=== PATIENT | male | born 2000 ===

== ENCOUNTER 2024-11-05 14:47 | Outpatient (AMB) | payer BC, SELFPAY ==
--- NOTE | 2024-11-05 14:50 | A.OFFPC_ITS ---
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 raphael/dr Elliott Allergies Seasonal Allergies Allergy (Mild, Verified 11/05/24 14:57) Itching Medication List - Last Reconciled 11/05/24 by Bahman Bajwa MD No Known Home Meds Tobacco use date assessed: 11/05/24 Dental Screening Dental Screen Date: 11/05/24 Did you have a dental visit in the last 12 months?: Yes Did you have a dental problem in the last 6 months where you did not have access to dental care?: No Was dental information given to patient?: Patient has dentist HPI TENDER 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 - Experienced significant weight gain du e to decreased physical activity. - Initiated gym attendance this week to manage weight. - Reports headaches potentially from sun exposure - No current eye conditions; wears glass es as needed. - Last labs conducted 2-3 years ago. - Family history includes heart disease, hypertension, and diabetes. - Daily cannabis smoker, considering str ain change to curtail appetite. Health Maintenance - Discussion on immunization status incl uding tetanus, measles, mumps, and rubella. - Recommended fasting labs for further e valuation of health metrics and risk factors. - Encouraged physical activity to manage weight and counteract the effects of cannabis-induced increased appetite. 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 - Education level is a high school diplo ma. - Smokes cannabis daily, considering adj usting the strain due to its appetite- stimulating properties. - Reports recent reduction in physical a ctivity leading to weight gain; has resumed gym activity recently. Family History - Positive for heart disease. - Positive for hypertension. - Positive for diabetes. Problem List - Headaches - Obesity - History of smoking cannabis - Family history of heart disease - Family history of hypertension - Family history of diabetes Patient Instructions - Undergo fasting laboratory tests with no food intake from 4 to 10 hours prior. - Setup a patient portal online to acces s lab results. - Increase physical activity and continu e attending the gym for weight management. - Consider discussing cannabis strain op tions at the clinic for appetite management. Review of Systems - General: No fever no chills - Neurological: No headaches no dizzin ess - Ear nose throat: No sore throat no hearing difficulty no ear pain - Cardiovascular: No syncope, no chest pain, no palpitations - Gastrointestinal: No nausea vomiting or diarrhea - Endocrine: No polyuria polydipsia no heat intolerance - Genitourinary: No dysuria - Skin: No new complaints Physical Exam General: Cooperative, healthy appearing, comfortable, no acute distress Orientation: Patient oriented x3 Limitations: None Head: Normal to inspection Ears: Within normal limit visually Nose: Normal external nose present Face and sinus: Normal facial exam Eyes: Appearance normal, extraocular movement intact pupils reactive Neck: Normal visual inspection and supple Respiratory: Normal respiratory effort and able to speak in complete sentences. Clear to auscultation, no stridor Cardiovascular: S1 and S2 regular in rate and rhythm GI: Normal to inspection. Soft to palpation and nontender Skin: Turgor normal, no acute findings Neuro: Patient oriented x3, motor sensory intact, balance intact, tandem pass Extremities: Normal to inspection, some clicking in the shoulder due to work- related upper extremity movement [facility] Social History Housing: House Patient Tobacco Use Status: Never used Tobacco e-Cigarette/Vaping Use: Never Used service: No Current occupational status: employed Cognitive needs: No Hearing needs: No Vision needs: Yes Questionnaire PHQ-9 Over the last 2 weeks, how often have you been bothered by any of the following problems? 1. Little interest or pleasure in doing things: nearly every day 2. Feeling down, depressed, or hopeless: not at all 3. Trouble falling or staying asleep, or sleeping too much: several days 4. Feeling tired or having little energy: several days 5. Poor appetite or overeating: several days 6. Feeling bad about yourself - or that you are a failure or have let yourself or your family down: not at all 7. Trouble concentrating on things, such as reading the newspaper or watching television: not at all 8. Moving or speaking so slowly that other people could have noticed. Or the opposite - being so fidgety or restless that you have been moving around a lot more than usual: not at all 9. Thoughts that you would be better off or of hurting yourself in some way: not at all Total score: 6 Depression Screening Interpretation: Negative Depression Screening Done: Yes 53251 - PHQ-9 Billing: Yes Source: Developed by Drs. Iain Vásquez, Eli Culp, Christos Brooks and colleagues, with an educational torin from [email or web address]. Thrive Questionnaire Date Thrive assessed: 11/05/24 I am a: Patient What is your living situation today?: I have a steady place to live Within the past 12 months, did the food you bought not last and you didn't have the money to get more?: Never true Within the past 12 months, did you worry whether your food would run out before you got money to buy more?: Never true Do you have trouble paying for medicines?: No Do you have trouble getting transportation to medical appointments?: No Do you have trouble paying your heating and electricity bill?: No Do you have trouble taking care of your child, family member or friend?: No Do you have trouble with day-to-day activities such as bathing, preparing meals, shopping, managing finances, etc.?: No Are you currently unemployed and looking for a job?: No Are you interested in more education?: No Please select the resources that you would like help with: Paying for medicine and None Currently or been in a relationship where the following occur: No concerns reported THRIVE Score: 0 AUDIT C Alcohol Use Questionnaire (AUDIT-C) 1. How often do you have a drink containing alcohol?: Monthly or less 2. How many drinks containing alcohol do you have on a typical day when you are drinking?: 5 or 6 3. How often do you have six or more drinks on one occasion?: Monthly Total Score: 5 Score Reviewed/Action Taken: Yes (Consider cutting down on amount of alcohol) CRISTOPHER-7 AMB Questionnaire CRISTOPHER-7 Date CRISTOPHER - 7 assessed: 11/05/24 Feeling nervous, anxious, or on edge: 1 = Several days Not being able to stop or control worryin = Not at all Worrying too much about different things: 0 = Not at all Trouble relaxin = Not at all Being so restless that it is hard to sit still: 0 = Not at all Becoming easily annoyed or irritable: 2 = More than half the days Feeling afraid as if something awful might happen: 0 = Not at all Total CRISTOPHER-7 score (0-4 normal; 5-9 mild; 10-14 moderate; 15-21 severe): 3 Source: Developed by Drs. Iain Vásquez, Eli Culp, Christos Brooks and colleagues, with an educational torin from [email or web address]. CRISTOPHER-7 Assessment Billing CRISTOPHER-7 Assessment Tool: CRISTOPHER-7 Assessment 87936 Physical exam (Primary Care) Vital Signs: Last Vital Signs Temp 98.1 F 11/05/24 14:53 Pulse 96 11/05/24 14:53 BP 120/82 11/05/24 14:53 Pulse Ox 99 11/05/24 14:53 Oxygen Delivery Method Room Air 11/05/24 14:53 BMI result Body Mass Index 43.8 Tobacco/Smoking Status: Tobacco use Status Tobacco use date assessed 11/05/24 11/05/24 14:59 Patient Tobacco Use Status Never used Tobacco 11/05/24 14:59 e-Cigarette/Vaping Use Never Used 11/05/24 14:59 PHQ-9: PHQ-9 Score PHQ-9: Total score 6 11/05/24 14:52 Depression Screening Interpretation: Negative Thrive Assessment: Date of Thrive Assessment Date Thrive assessed 11/05/24 11/05/24 14:52 Currently or been in a relationship where the following occur: No concerns reported Coding Level of Care Code New Pt Level 4 (47905) New Pt Prev Care 18-39yr(93835 Diagnoses Encounter for general adult medical examination with abnormal findings Z00.01 Cannabis use disorder, mild, abuse F12.10 Drinks alcohol Z78.9 Morbid obesity due to excess calories E66.01 Family history of hypertension Z82.49 Family history of diabetes mellitus Z83.3 Family history of heart disease Z82.49 Immunizations incomplete Z28.39 Additional Codes CRISTOPHER-7 Assessment Billing - CRISTOPHER-7 Assessment Tool: CRISTOPHER-7 Assessment 58909 ([id number]) PHQ-9 - 27484 - PHQ-9 Billing: Yes ([id number]) Assessment & Plan Assessment & Plan (1) Encounter for general adult medical examination with abnormal findings: Code(s): Z00.01 - Encounter for general adult medical examination with abnormal findings Category: Medical (2) Cannabis use disorder, mild, abuse: Code(s): F12.10 - Cannabis abuse, uncomplicated Category: Medical (3) Drinks alcohol: Code(s): Z78.9 - Other specified health status Category: Social Hx (4) Morbid obesity due to excess calories: Code(s): E66.01 - Morbid (severe) obesity due to excess calories Category: Medical (5) Family history of hypertension: Code(s): Z82.49 - Family history of ischemic heart disease and other diseases of the circulatory system Category: Medical (6) Family history of diabetes mellitus: Code(s): Z83.3 - Family history of diabetes mellitus Category: Medical (7) Family history of heart disease: Code(s): Z82.49 - Family history of ischemic heart disease and other diseases of the circulatory system Category: Medical (8) Immunizations incomplete: Code(s): Z28.39 - Other underimmunization status Category: Medical Plan Physical exam new patient History - The patient is a 24-year-old male presenting with concerns of weight gain, and smoking cannabis. - Experienced significant weight gain due to decreased physical activity. - Initiated gym attendance this week to manage weight. - Reports headaches potentially from sun exposure - No current eye conditions; wears glasses as needed. - Last labs conducted 2-3 years ago. - Family history includes heart disease, hypertension, and diabetes. - Daily cannabis smoker, considering strain change to curtail appetite. Health Maintenance - Discussion on immunization status including tetanus, measles, mumps, and rubella. - Recommended fasting labs for further evaluation of health metrics and risk factors. - Encouraged physical activity to manage weight and counteract the effects of cannabis-induced increased appetite. 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 - Education level is a high school diploma. - Smokes cannabis daily, considering adjusting the strain due to its appetite- stimulating properties. - Reports recent reduction in physical activity leading to weight gain; has resumed gym activity recently. Family History - Positive for heart disease. - Positive for hypertension. - Positive for diabetes. Problem List - Headaches - Obesity - History of smoking cannabis - Family history of heart disease - Family history of hypertension - Family history of diabetes Patient Instructions - Undergo fasting laboratory tests with no food intake from 4 to 10 hours prior. - Setup a patient portal online to access lab results. - Increase physical activity and continue attending the gym for weight management. - Consider discussing cannabis strain options at the clinic for appetite management. Orders: Orders Complete Blood Count Auto Diff Today E66.01 - Morbid (severe) obesity due to excess calories, F12.10 - Cannabis abuse, uncomplicated, Z00.01 - Encounter for general adult medical examination with abnormal findings, Z28.39 - Other underimmunization status, Z78.9 - Other specified health status, Z82.49 - Family history of ischemic heart disease and other diseases of the circulatory system, Z83.3 - Family history of diabetes mellitus Comprehensive Delta. Panel Fast Today E66.01 - Morbid (severe) obesity due to excess calories, F12.10 - Cannabis abuse, uncomplicated, Z00.01 - Encounter for general adult medical examination with abnormal findings, Z28.39 - Other underimmunization status, Z78.9 - Other specified health status, Z82.49 - Family history of ischemic heart disease and other diseases of the circulatory system, Z83.3 - Family history of diabetes mellitus Lipid Panel Today E66.01 - Morbid (severe) obesity due to excess calories, F12.10 - Cannabis abuse, uncomplicated, Z00.01 - Encounter for general adult medical examination with abnormal findings, Z28.39 - Other underimmunization status, Z78.9 - Other specified health status, Z82.49 - Family history of ischemic heart disease and other diseases of the circulatory system, Z83.3 - Family history of diabetes mellitus Vitamin D 25-OH (D2 and D3) Today E66.01 - Morbid (severe) obesity due to excess calories, F12.10 - Cannabis abuse, uncomplicated, Z00.01 - Encounter for general adult medical examination with abnormal findings, Z28.39 - Other underimmunization status, Z78.9 - Other specified health status, Z82.49 - Family history of ischemic heart disease and other diseases of the circulatory system, Z83.3 - Family history of diabetes mellitus UA CC w/rflx Micro + Cult Today E66.01 - Morbid (severe) obesity due to excess calories, F12.10 - Cannabis abuse, uncomplicated, Z00.01 - Encounter for general adult medical examination with abnormal findings, Z28.39 - Other underimmunization status, Z78.9 - Other specified health status, Z82.49 - Family history of ischemic heart disease and other diseases of the circulatory system, Z83.3 - Family history of diabetes mellitus Rubeola IgG (Measles) Today E66.01 - Morbid (severe) obesity due to excess calories, F12.10 - Cannabis abuse, uncomplicated, Z00.01 - Encounter for general adult medical examination with abnormal findings, Z28.39 - Other underimmunization status, Z78.9 - Other specified health status, Z82.49 - Family history of ischemic heart disease and other diseases of the circulatory system, Z83.3 - Family history of diabetes mellitus Rubella IgG Antibody Today E66.01 - Morbid (severe) obesity due to excess calories, F12.10 - Cannabis abuse, uncomplicated, Z00.01 - Encounter for general adult medical examination with abnormal findings, Z28.39 - Other underimmunization status, Z78.9 - Other specified health status, Z82.49 - Family history of ischemic heart disease and other diseases of the circulatory system, Z83.3 - Family history of diabetes mellitus T Spot TB Today E66.01 - Morbid (severe) obesity due to excess calories, F12.10 - Cannabis abuse, uncomplicated, Z00.01 - Encounter for general adult medical examination with abnormal findings, Z28.39 - Other underimmunization status, Z78.9 - Other specified health status, Z82.49 - Family history of ischemic heart disease and other diseases of the circulatory system, Z83.3 - Family history of diabetes mellitus Tetanus Antitoxiod Antibody Today E66.01 - Morbid (severe) obesity due to excess calories, F12.10 - Cannabis abuse, uncomplicated, Z00.01 - Encounter for general adult medical examination with abnormal findings, Z28.39 - Other underimmunization status, Z78.9 - Other specified health status, Z82.49 - Family history of ischemic heart disease and other diseases of the circulatory system, Z83.3 - Family history of diabetes mellitus Hepatitis B Surface Antibody Today E66.01 - Morbid (severe) obesity due to excess calories, F12.10 - Cannabis abuse, uncomplicated, Z00.01 - Encounter for general adult medical examination with abnormal findings, Z28.39 - Other underimmunization status, Z78.9 - Other specified health status, Z82.49 - Family history of ischemic heart disease and other diseases of the circulatory system, Z83.3 - Family history of diabetes mellitus TSH reflex Free T4 Today E66.01 - Morbid (severe) obesity due to excess calories, F12.10 - Cannabis abuse, uncomplicated, Z00.01 - Encounter for general adult medical examination with abnormal findings, Z28.39 - Other underimmunization status, Z78.9 - Other specified health status, Z82.49 - Family history of ischemic heart disease and other diseases of the circulatory system, Z83.3 - Family history of diabetes mellitus Hemoglobin A1c Today E66.01 - Morbid (severe) obesity due to excess calories, F12.10 - Cannabis abuse, uncomplicated, Z00.01 - Encounter for general adult medical examination with abnormal findings, Z28.39 - Other underimmunization status, Z78.9 - Other specified health status, Z82.49 - Family history of ischemic heart disease and other diseases of the circulatory system, Z83.3 - Family history of diabetes mellitus Varicella IgG Antibody Today E66.01 - Morbid (severe) obesity due to excess calories, F12.10 - Cannabis abuse, uncomplicated, Z00.01 - Encounter for general adult medical examination with abnormal findings, Z28.39 - Other underimmunization status, Z78.9 - Other specified health status, Z82.49 - Family history of ischemic heart disease and other diseases of the circulatory system, Z83.3 - Family history of diabetes mellitus
[2024-11-05 14:53] VITALS: BP 120/82; PULSE 96; TEMP 36.7; O2SAT 99; BMI 43.8
== END 2024-11-05 15:14 | disposition home or self-care (01) ==
LOC: HO.HMCC 14:48
PROVIDERS: PCP Internal Medicine; Visit Provider Internal Medicine
DX: Z00.01 Encounter for general adult medical examination with abnormal findings (principal); F12.10 Cannabis abuse, uncomplicated; E66.01 Morbid (severe) obesity due to excess calories; Z68.41 Body mass index [BMI] 40.0-44.9, adult; Z78.9 Other specified health status; Z82.49 Family history of ischemic heart disease and other diseases of the circulatory system; Z83.3 Family history of diabetes mellitus; Z28.39 Other underimmunization status

== ENCOUNTER → 2024-11-05 14:47 | Outpatient (BNVA) | payer BC, SELFPAY | PROVIDERS: PCP Internal Medicine; Visit Provider Internal Medicine | DX: Z00.01 Encounter for general adult medical examination with abnormal findings (principal); E66.01 Morbid (severe) obesity due to excess calories; Z68.41 Body mass index [BMI] 40.0-44.9, adult; F12.10 Cannabis abuse, uncomplicated; Z28.39 Other underimmunization status; Z78.9 Other specified health status; Z82.49 Family history of ischemic heart disease and other diseases of the circulatory system; Z83.3 Family history of diabetes mellitus | CPT/HCPCS: 96127 ==

== ENCOUNTER 2024-11-20 07:27 | Outpatient (REF) | payer BC, SELFPAY ==
[2024-11-20 11:19] LABS: MANUAL DIFF FLAG NO
[2024-11-20 11:23] LABS: Basophils Percent Auto 0.6 % (0-2); Eosinophils Absolute Auto 0.1 X10*3/uL (0.0-0.4); Hematocrit 43.8 % (42.0-52.0); Hemoglobin 14.1 g/dl (14.0-18.0); Imm Gran Abs Auto 0.02 X10*3/uL (0.00-0.03); Imm Gran Pct Auto 0.3 % (0.0-0.4); Lymphocytes Absolute Auto 1.6 X10*3/uL (1.2-4.9); Mean Corpuscular HGB Conc 32.2 g/dl (31.0-36.0); Mean Corpuscular Hemoglobin 26.6 pg (27.0-33.0); Mean Corpuscular Volume 82.6 fL (80.0-98.0); Mean Platelet Volume 10.8 fL (9.4-12.4); Monocytes Absolute Auto 0.5 X10*3/uL (0.1-1.2); Monocytes Percent Auto 7.7 % (2-11); Neutrophils Percent Auto 64.4 % (45-73); Platelet Count 342 X10*3/uL (160-400); Red Cell Distribution Width 14.3 % (11.0-16.0); White Blood Count 6.2 X10*3/uL (4.8-10.8)
[2024-11-20 11:44] LABS: Alanine Aminotransferase 38 U/L (0-40); Albumin Level 4.1 g/dL (3.5-5.0); Alkaline Phosphatase 117 U/L (39-117); Anion Gap 11 (12-20); Aspartate Amino Transferase 27 U/L (5-37); Bilirubin Total 0.9 mg/dL (0.0-1.0); Blood Urea Nitrogen 11 mg/dL (9-16); Calcium 9.2 mg/dL (8.4-10.2); Carbon Dioxide 23 mmol/L (22-29); Chloride 110 mmol/L (96-108); Cholesterol 217 mg/dL (<200); Estimated Glomerular Filt Rate > 60; Glucose Fasting 102 mg/dL (60-99); HDL Cholesterol 35 mg/dL (>40); LDL Cholesterol Calculated 144 mg/dL (<100); Potassium 4.1 mmol/L (3.3-5.1); Sodium 140 mmol/L (135-145); Total Protein 7.2 g/dL (6.5-8.0); Triglycerides 192 mg/dL (<150)
[2024-11-20 11:49] LABS: Estimated Average Glucose 114 mg/dL; Hemoglobin A1C 143.2871 umol/L; Hemoglobin A1c % 5.6 % (<6.0); Total Hemoglobin (HGBA1C) 3808.4864 umol/L
[2024-11-20 12:02] LABS: TSH reflex Free T4 0.53 uIU/mL (0.32-4.0)
[2024-11-22 08:33] LABS: HBS Num1 1.15 mIU/mL (0-7.99); ~Hepatitis B Surface Antibody NONREACTIVE (Nonreactive)
[2024-11-23 05:19] LABS: Rubella IgG Antibody 2.98 Index
[2024-11-23 21:03] LABS: Tetanus Antitoxiod Antibody 1.29 IU/mL
[2024-11-25 14:10] LABS: Vitamin D 25-OH, D2 <4 ng/mL; Vitamin D 25-OH, D3 8 ng/mL; Vitamin D 25-OH, Total 8 ng/mL (30-100)
== END 2024-11-20 07:28 | disposition home or self-care (01) ==
LOC: HO.HMGCLDS 07:27
PROVIDERS: PCP Internal Medicine; Visit Provider Internal Medicine
DX: Z00.01 Encounter for general adult medical examination with abnormal findings (principal); F12.10 Cannabis abuse, uncomplicated; Z78.9 Other specified health status; E66.01 Morbid (severe) obesity due to excess calories; Z82.49 Family history of ischemic heart disease and other diseases of the circulatory system; Z83.3 Family history of diabetes mellitus; Z28.39 Other underimmunization status
CPT/HCPCS: 36415; 80053; 80061; 82306; 83036; 84443; 85025; 86706; 86762; 86765; 86774; 86787

== ENCOUNTER → 2025-01-11 07:59 | Outpatient (BNVA) | payer BC, SELFPAY | PROVIDERS: PCP Internal Medicine; Visit Provider Surgery ==

== ENCOUNTER 2025-03-14 08:09 | Outpatient (AMB) | payer BC, SELFPAY ==
--- NOTE | 2025-03-14 08:11 | A.OFFVIS_ITS ---
VS Expanded 03/14/25 08:33 Height 5 ft 6 in Weight 265 lb 12 oz BMI 42.9 Body Fat % 41.7 Body Fat Mass 110.6 Fat Free Mass 155 Visceral Fat Rating 22 Body Water Mass 107.4 Basal Metabolic Rate/Score 2,210 Intake Visit Reasons: [employer] [facility] Allergies Seasonal Allergies Allergy (Mild, Verified 03/14/25 08:11) Itching Medication List - Last Reconciled 03/14/25 by William Vo MD cetirizine 10 mg PO DAILY PRN cholecalciferol (vitamin D3) 25 mcg PO DAILY 90 days HPI HPI [employer] [facility]: Details: Start time: 8.00am, End time: 9am I spent 55 minutes speaking with the patient on the phone plus an additional 5 minutes reviewing and updating records for a total of 60 minutes HPI Comments Details: Previous weight loss efforts: self diet and exercise Wakes up: 4.30am, Sleeps: 9pm Breakfast: 4.30am ([place] bar: 3gr of protein) Lunch: 12pm (rice, chicken) Dinner: 6pm (rice, beans, pork or chicken) Snacks: 10am (cheezt crackers, chips, granola bars), 4pm (occasionally a fruit), 9pm (on weekends: hot dog) Exercise: home stationary bike Beverages: Coffee: none, Tea: Green tea (1 cup/d x3-4/wk with lemon), Soda: Regular Sprite, Pepsi, or Coke (2-3 cans x 3-4/wk), Juice: Amita x3/d, ETOH: 2 shots x2/month PFSH Medical History (Updated 03/14/25 @ 08:13 by William Vo MD) Hyperlipidemia Surgical History (Updated 01/11/25 @ 08:42 by Danita Beltre CMA) No history of previous surgery Family History (Updated 01/11/25 @ 08:42 by Danita Beltre CMA) Mother Heart problem Hypertension Father Diabetes Social History (Updated 01/11/25 @ 08:43 by Danita Beltre CMA) Housing: House Alcohol intake: current Alcohol intake frequency: a few times a month Patient Tobacco Use Status: Never used Tobacco e-Cigarette/Vaping Use: Never Used Substance Use Type: Marijuana service: No Current occupational status: employed Cognitive needs: No Hearing needs: No Vision needs: Yes Telehealth Telehealth Telehealth Platform: Telephone Location of provider rendering services: practice address Location of patient: address on file Patient Identification confirmed using: Name, : Yes Telehealth method: voice only Patient verbally consented to treatment: Yes Patient verbally consented to billing insurance company: Yes Patient informed of any privacy concerns related to visit: Yes Minutes spent on Phone/Video with Pt.: 60 Assessment & Plan Assessment & Plan (1) Morbid obesity due to excess calories: Code(s): E66.01 - Morbid (severe) obesity due to excess calories Category: Medical Plan: 1. Plan for lap sleeve gastrectomy. If diaphragmatic or ventral hernias are present at time of surgery, these will be repaired laparoscopically as well. I emphasized the importance of close follow-up, adherence to instructions and good communication. The surgery does not replace the need to change your lifestlyle which is the cause of the obesity problem. The surgery provides the motivation to try again to change your lifestyle, it reduces the appetite and make the transition to a better lifestyle easier and doubles the amount of weight you would lose compared to doing the lifestyle change without the surgery. You will need to be on a liquid diet with protein shakes for 2 weeks before surgery to maximize weight loss and boost your nutritional status to recover better from surgery and also for the first two weeks after surgery to let the stomach heal before we introduce other foods. After the first 2 weeks we will introduce protein bars and soft foods like scrambled eggs, cottage cheese and yogurt and after the 6th week will introduce meat, fish and cooked vegetables in small amounts. Over time you should be able to eat everything in small amounts. Side effects like nausea, vomiting, heartburn or abdominal pain are not common in the practice unless you are not following in the practice. This operation requires lifetime commitment to following in our practice and communication with me. You will much less weight and experience side effects if you don?t communicate or not following in the practice. Complications are rare and in our practice is about 1/10 of the national average. However, you can develop bleeding that may require transfusion (hasn?t happened for year in the practice), you may from complications (we did not have any deaths in the practice) and infections. Infections are usually a result of breakdown in communication or not understanding or following directions correctly. They are difficult to treat, they can happen during the first 6 weeks, they may require to be in the hospital for weeks or even months, not being able to eat by mouth and you may have drains and surgeries to try and correct the issue. Other risks and complications include possible conversion to an open procedure, leaks, small bowel obstruction, blood clots, cardiac, or pulmonary complications, as exterminator complications such as ulcers, insufficient weight loss and vitamin deficiencies. 2. Nutritional counseling. Start with one premade PREMIER protein (buy at [employer], or [employer], or [employer]) shake (Mix 4oz of PREMIER and NOT the whole bottle WITH 4oz low fat unsweetened almond milk) at 6am-8am, 2 protein bars (16gr Fit Crunch protein bars, buy at [employer] or [employer]) at 9am-11am and 12pm-2pm, another Premier shake another premade PREMIER protein shake (Mix 4oz of PREMIER and NOT the whole bottle WITH 4oz low fat unsweetened almond milk) at 3pm-5pm, dinner at 6pm (10 forks of protein and 10 forks of salad/vegetables). If hungry after dinner do another HALF Fit Crunch protein bar after dinner at 8pm-9pm. So you do 2 protein shakes, 2 to 2.5 protein bars and one meal per day. Meal to include lean meat (beef, fish, pork, turkey, chicken), or luxembourgish yogurt, or egg whites, or beans with a salad with olive oil and fruits (berries, pears, apples, kiwi). Avoid salt, breads, potatoes, rice, pasta, desserts. 3. Each shake would be drunk slowly, like coffee in a period of 2 hours. 4. Cut each bar in 4 pieces and eat each piece in 30min to make each bar last 2 hours. 5. I emphasized the importance of measuring accurately the food portion and measure it when serving the food in plate 6. The meal portions include 10 full-size forks of meat and 10 full-size forks of salad. You always eat the meat portion but you can replace up to 5 forks for salad/vegetables with rice, potatoes or pasta, or a fruit if you like. The less you do it the better weight loss will be. 7. One full-size fork is what it can be scooped on the fork without falling aside and not what can be bit with the fork. Use regular forks like those you find in a typical restaurant. 8. Please buy the body composition scale we discussed and send me weight measurements as soon as possible and then once a week. Always include your diet and exercise plan. 9. Start stationary bike at a resistance level of 4.0 Increase level by 1.0 every 3 min to a max level of 10.0. Stay at this level for 3 min and then return to level 4.0 and repeat same steps until 300 calories are burned. Velocity target is 12mph and heart rate is 145 bpm. Goal is to burn 2000 calories per week on exercise 10. Goal is to lose at least 1.5-2lbs per week 11. Goal to lose 10% of your weight before surgery, which is about 25lbs. Ultimate weight goal: 240lbs before surgery 12. Please follow the diet plan exactly without any change. If you don't like something about the plan or you feel hungry you need to communicate with me so I can help you revise the plan. You should not change the plan yourself 13. To be scheduled for EGD to assess the stomach's anatomy. The possibility of biopsies was discussed. Patient needs to avoid use of NSAIDs and aspirin for 1 week prior to EGD. You must be on liquids only the day before your endoscopy. Risks of perforation and bleeding was discussed with the patient. This will be an outpatient procedure with IV sedation. 14. As of tomorrow, please send me a picture of your meal plate after you measure it, but before you consume it. Orders: Orders Comprehensive Met. Panel Today E66.01 - Morbid (severe) obesity due to excess calories, E78.5 - Hyperlipidemia, unspecified Ferritin Today E66.01 - Morbid (severe) obesity due to excess calories, E78.5 - Hyperlipidemia, unspecified XR chest 2V Today E66.01 - Morbid (severe) obesity due to excess calories, E78.5 - Hyperlipidemia, unspecified ECG 12 lead EKG Today E66.01 - Morbid (severe) obesity due to excess calories, E78.5 - Hyperlipidemia, unspecified FL upper GI w air Today E66.01 - Morbid (severe) obesity due to excess calories, E78.5 - Hyperlipidemia, unspecified Insulin Today E66.01 - Morbid (severe) obesity due to excess calories, E78.5 - Hyperlipidemia, unspecified Hemoglobin A1c Today E66.01 - Morbid (severe) obesity due to excess calories, E78.5 - Hyperlipidemia, unspecified H Pylori Breath Test Today E66.01 - Morbid (severe) obesity due to excess calories, E78.5 - Hyperlipidemia, unspecified Complete Blood Count Auto Diff Today E66.01 - Morbid (severe) obesity due to excess calories, E78.5 - Hyperlipidemia, unspecified Lipid Panel Today E66.01 - Morbid (severe) obesity due to excess calories, E78.5 - Hyperlipidemia, unspecified IRON PROFILE Today E66.01 - Morbid (severe) obesity due to excess calories, E78.5 - Hyperlipidemia, unspecified Vitamin B12 and Folate Today E66.01 - Morbid (severe) obesity due to excess calories, E78.5 - Hyperlipidemia, unspecified Zinc Today E66.01 - Morbid (severe) obesity due to excess calories, E78.5 - Hyperlipidemia, unspecified C Reactive Protein Today E66.01 - Morbid (severe) obesity due to excess calories, E78.5 - Hyperlipidemia, unspecified Vitamin B1 Today E66.01 - Morbid (severe) obesity due to excess calories, E78.5 - Hyperlipidemia, unspecified Vitamin A Today E66.01 - Morbid (severe) obesity due to excess calories, E78.5 - Hyperlipidemia, unspecified TSH reflex Free T4 Today E66.01 - Morbid (severe) obesity due to excess calories, E78.5 - Hyperlipidemia, unspecified Vitamin D 25-OH Total Today E66.01 - Morbid (severe) obesity due to excess calories, E78.5 - Hyperlipidemia, unspecified US abdomen comp w elastography Today E66.01 - Morbid (severe) obesity due to excess calories, E78.5 - Hyperlipidemia, unspecified Referrals Behavioral Health Referral E66.01 - Morbid (severe) obesity due to excess calories, E78.5 - Hyperlipidemia, unspecified Nutrition/Dietitian Referral E66.01 - Morbid (severe) obesity due to excess calories, E78.5 - Hyperlipidemia, unspecified Medications: New tirzepatide (weight loss) (Zepbound) 5 mg (0.5 mL) subcut QWEEK 2 mL 0RF E66.01 - Morbid (severe) obesity due to excess calories
[2025-03-14 08:33] VITALS: BMI 42.9
== END 2025-03-14 09:01 | disposition home or self-care (01) ==
LOC: HO.HBS 08:09
PROVIDERS: PCP Internal Medicine; Visit Provider Surgery
DX: E66.01 Morbid (severe) obesity due to excess calories (principal)
CPT/HCPCS: 99205